=== PATIENT | female | born 1940 | race Caucasian/White ===

== ENCOUNTER 2016-08-30 10:53 | Day surgery (SDC) | payer MEDICARE ==
[2016-08-24 13:25] VITALS: BMI 28.1
[~2016-08-30 10:53] MED LIST: ALBUTEROL NEB (CONC) 2.5 MG/0.5 ML INHALATION ONE; ATROPINE SULFATE 0.4 MG/ML 1 ML VIAL IM ONE; LACTATED RINGERS 1,000 ML IV ONE; LACTATED RINGERS 1,000 ML IV SCH; LIDOCAINE 2% (PF) 20 MG/ML 10ML INHALATION ONE; Pre Op ABX Message 1 EACH MISC MISCELLANE ONE
[2016-08-30 11:30] VITALS: TEMP 97.2
[2016-08-30] MEDS ORDERED: LIDOCAINE 1% 20 ML VIAL (10MG/ML) FOR IV START INTRADERMA ONE (11:45)
[2016-08-30] MEDS ORDERED: PROPOFOL 10 MG/ML 20 ML VIAL IV ONE (12:06)
[2016-08-30] MEDS ORDERED: MIDAZOLAM 2 MG/2 ML VIAL ONE (12:06)
[2016-08-30] MEDS ORDERED: KETAMINE 10 MG/ML 20 ML VIAL ONE (12:06)
[2016-08-30] MEDS ORDERED: fentaNYL (PF) 50 MCG/ML 2 ML AMP ONE (12:06)
[2016-08-30] MEDS ORDERED: LIDOCAINE 1% INJ 10MG/ML (20 ML MDV) ONE (12:06)
[2016-08-30 12:38] VITALS: RESP 18
[2016-08-30 12:55] VITALS: BP 135/76; PULSE 106
--- NOTE | 2016-08-30 15:04 | PCN ---
DATE OF PROCEDURE: There was informed consent. There was universal timeout. PROCEDURE: Bronchoscopy, airway examination, therapeutic lavage, BAL right middle lobe. PREOPERATIVE DIAGNOSIS: Chronic cough POSTOPERATIVE DIAGNOSIS: Chronic cough. There was informed consent and universal timeout. Nadine March CRNA provided IV conscious sedation. After the patient was adequately sedated and being fully monitored, the bronchoscope was inserted through the right nostril. It passed through the right nasopharynx into the oropharynx. The hypopharynx was identified and topicalized. The hypopharyngeal structures all appeared normal, including anterior commissure, true cords, false cords, arachnoid, piriform sinuses, right and left vallecula and epiglottis. After topicalization, the bronchoscope was pushed through the glottic opening into the windpipe. The windpipe appeared normal. Tracheal azael was sharp. Minimal secretions were noted. Right and left mainstem were topicalized. The right upper lobe and its 3 segments, the right middle lobe and its 2 segments, the right lower lobe and its 5 segments, left upper lobe proper and its 2 segments, the lingula and its 2 segments, and the left lower lobe and its 4 segments all had similar findings of diffuse mild bronchitis. There was mild hyperemia and erythema. There was some vascular engorgement. There was no dominant mass, tumor or growth. Secretions were minimal and somewhat frothy looking. Anyway, after a thorough evaluation and inspection, the bronchoscope was wedged into the right middle lobe. BAL took place. The patient tolerated the procedure well. There was minimal scope trauma and the bronchoscope was withdrawn. The patient will be recovered. She was stable throughout the entire procedure.
[2016-08-30 15:39] LABS: RBC, Body Fluid 8800 /uL
== END 2016-08-30 13:11 | disposition home or self-care (01) ==
LOC: ORWHC2ENDO 10:53
PROVIDERS: ATTEND Internal Medicine Critical Care Medicine
DX: J40 Bronchitis, not specified as acute or chronic (principal); E03.9 Hypothyroidism, unspecified; I10 Essential (primary) hypertension; K76.89 Other specified diseases of liver; Z85.038 Personal history of other malignant neoplasm of large intestine; M81.0 Age-related osteoporosis without current pathological fracture; Z79.82 Long term (current) use of aspirin; Z79.52 Long term (current) use of systemic steroids; Z79.899 Other long term (current) drug therapy
CPT/HCPCS: 94640; 87798 ×4; 87496; 87498; 87529 ×2; 88108; 88305; 89050; 87252; 87502 ×2; 87070; 87205; 87116; 87102; 87206; 31624; J2250; J0461; J2001 ×2; J3010; J2704; 99153

== ENCOUNTER → 2016-10-09 | Outpatient (CLI) | payer MEDICARE ==
[2016-10-09 15:21] LABS: Appearance,Urine Clear (Clear); Bilirubin,Urine Negative (Negative); Glucose,Urine (UA) Negative (Negative); Ketones,Urine Negative (Negative); Leukocyte Esterase,Urine Negative (Negative); Nitrite,Urine Negative (Negative); Protein,Urine Negative (Negative); Specific Gravity,Urine 1.022 (1.001-1.035); UA Billing (MACRO vs. MICRO) CHEM; Urobilinogen,Urine <2.0 mg/dL (<2.0)
[2016-10-09 15:22] LABS: Basophils # (A) 0.1 k/uL (0-0.2); Basophils % (A) 1 %; CH 29.5; CHCM 32.1; Eosinophils # (A) 0.2 k/uL (0-0.7); Eosinophils % (A) 3 %; HCT 43.3 % (34.0-46.0); HDW 2.25; HGB 13.8 gm/dL (11.4-16.0); Luc # (Auto) 0.25; Luc % (Auto) 3; Lymphocytes # (A) 1.8 k/uL (1.0-4.8); Lymphocytes % (A) 21 %; MCH 29.5 pg (25.0-35.0); MCHC 31.9 g/dL (31.0-37.0); MCV 92.3 fL (80.0-100.0); Mean Platelet Volume 7.4; Monocytes # (A) 0.6 k/uL (0-1.0); Monocytes % (A) 7 %; Neutrophils # (A) 5.7 k/uL (1.3-7.7); Neutrophils % (A) 66 %; RBC 4.69 m/uL (3.80-5.40); RDW 14.4 % (11.5-15.5); WBC 8.5 k/uL (3.8-10.6); WBC (Perox) 9.02
[2016-10-09 15:33] LABS: ALT 30 U/L (9-52); AST 22 U/L (14-36); Alkaline Phosphatase 105 U/L (38-126); Anion Gap 13 mmol/L; Blood Urea Nitrogen 25 mg/dL (7-17); Carbon Dioxide 25 mmol/L (22-30); Chloride 109 mmol/L (98-107); Glucose 91 mg/dL (74-99); Non-African American GFR(MDRD) >60 (>60 ml/min/1.73 sqM); Potassium 4.2 mmol/L (3.5-5.1); Sodium 147 mmol/L (137-145); Total Bilirubin 0.7 mg/dL (0.2-1.3); Total Protein 6.8 g/dL (6.3-8.2)
[2016-10-09 15:35] LABS: Partial Thromboplastin Time 23.5 sec (22.0-30.0); Prothrombin Time 9.9 sec (9.0-12.0)
== END | disposition home or self-care (01) ==
LOC: LABPAT 14:48
PROVIDERS: ATTEND Orthopaedic Surgery Sports Medicine
DX: Z01.812 Encounter for preprocedural laboratory examination (principal)
CPT/HCPCS: 80053; 81003; 85025; 85610; 85730

== ENCOUNTER 2016-10-18 09:44 | Inpatient (IN) | payer MEDICARE ==
[2016-10-17 11:05] VITALS: BMI 28.1
[~2016-10-18 09:44] MED LIST changes: +ACETAMINOPHEN TAB 500 MG TAB PO ONE; -ALBUTEROL NEB (CONC) 2.5 MG/0.5 ML INHALATION ONE; +ALVIMOPAN 12 MG CAPSULE PO ONE; -ATROPINE SULFATE 0.4 MG/ML 1 ML VIAL IM ONE; +DEXAMETHASONE SOD PHOSPHATE 10 MG/ML 1 ML VIAL IV ONE; +HYDROmorphone 1 MG/ML 1 ML SYRINGE IVP PRN; -LACTATED RINGERS 1,000 ML IV ONE; +LIDOCAINE 1% 20 ML VIAL (10MG/ML) FOR IV START INTRADERMA PRN; -LIDOCAINE 2% (PF) 20 MG/ML 10ML INHALATION ONE; +MELOXICAM 7.5 MG TAB PO ONE; +MIDAZOLAM 2 MG/2 ML VIAL IV PRN; +ONDANSETRON 4 MG/2 ML VIAL IVP ONE; -Pre Op ABX Message 1 EACH MISC MISCELLANE ONE; +SCOPOLAMINE 1.5MG/72HR PATCH TRANSDERM ONE; +TRANEXAMIC ACID 1,000 MG in SODIUM CHLORIDE 0.9% 100 ML IVPB ONE; +ceFAZolin 2 GM in SODIUM CHLORIDE 0.9% 100 ML IVPB ONE
[2016-10-18 10:35] LABS: Glucose,Whole Blood 92 mg/dL (75-99)
[2016-10-18] MEDS ORDERED: LIDOCAINE 1% INJ 10MG/ML (20 ML MDV) ONE (11:08)
[2016-10-18] MEDS ORDERED: PROPOFOL 10 MG/ML 20 ML VIAL IV ONE (11:08)
[2016-10-18] MEDS ORDERED: fentaNYL (PF) 50 MCG/ML 2 ML AMP ONE (11:08)
[2016-10-18] MEDS ORDERED: MIDAZOLAM 2 MG/2 ML VIAL ONE (11:08)
[2016-10-18] MEDS ORDERED: PHENYLEPHRINE-0.9% NACL SYG 1 MG/10 ML SYRINGE ONE (11:08)
[2016-10-18] MEDS ORDERED: TRANEXAMIC ACID 1,000 MG/10 ML VIAL ONE (11:08)
[2016-10-18] MEDS ORDERED: SODIUM CHLORIDE 0.9% 100 ML BAG ONE (11:08)
[2016-10-18] MEDS: ROPIVACAINE 246.25 MG, EPINEPHrine 0.5 MG, KETOROLAC 30 MG, cloNIDine HCL/PF 80 MCG, WA... MISCELLANE ONE ×10 (11:50→12:31)
[2016-10-18] MEDS ORDERED: ceFAZolin 3,000 MG in SODIUM CHLORIDE 0.9% IRRIGATIO 3,000 ML IRRIGATION ONE (11:51)
[2016-10-18] MEDS ORDERED: LACTATED RINGERS 1,000 ML IV ONE ×2 (12:38)
[2016-10-18] MEDS ORDERED: traMADol 50 MG TAB PO PRN (13:21)
[2016-10-18] MEDS ORDERED: HYDROmorphone 1 MG/ML 1 ML SYRINGE IVP PRN ×3 (13:21)
[2016-10-18] MEDS ORDERED: MAGNESIUM HYDROXIDE 2,400 MG/10 ML CUP PO PRN (13:21)
[2016-10-18] MEDS ORDERED: BISACODYL 10 MG SUPP RECTAL PRN (13:21)
[2016-10-18] MEDS ORDERED: ACETAMINOPHEN TAB 325 MG TAB PO PRN (13:21)
[2016-10-18] MEDS ORDERED: NALOXONE 0.4 MG/ML 1 ML VIAL IV PRN ×4 (13:21→19:01)
[2016-10-18] MEDS ORDERED: ONDANSETRON 4 MG/2 ML VIAL IVP PRN (13:21)
[2016-10-18] MEDS ORDERED: NA PHOS,M-B/NA PHOS,DI-BA 133 ML ENEMA RECTAL PRN (13:21)
[2016-10-18] MEDS ORDERED: HYDROcodone/APAP 7.5-325MG 1 EACH TAB PO PRN (13:21)
[2016-10-18] MEDS ORDERED: DIAZEPAM 5 MG TAB PO PRN (13:21)
[2016-10-18] MEDS ORDERED: hydrOXYzine PAMOATE 25 MG CAP PO PRN (13:21)
--- NOTE | 2016-10-18 13:57 | XR ---
EXAMINATION TYPE: XR knee limited LT DATE OF EXAM: 10/18/2016 1:44 PM CLINICAL HISTORY: Left knee pain and arthritis status post total knee replacement. TECHNIQUE: Portable AP and crosstable lateral views of the left knee are obtained immediately postop eratively. COMPARISON: None FINDINGS: Metallic hardware from total left knee arthroplasty is seen and appears satisfactory in al ignment and position. There is evidence of recent surgery with diffuse subcutaneous gas and soft tis jassi swelling noted. IMPRESSION: METALLIC HARDWARE FROM TOTAL LEFT KNEE ARTHROPLASTY IS SATISFACTORY IN ALIGNMENT.
[2016-10-18] MEDS ORDERED: NALBUPHINE 10 MG/ML AMPUL IV PRN (14:52)
[2016-10-18] MEDS ORDERED: MORPHINE SULFATE 4 MG/ML SYRINGE IVP PRN ×4 (14:52→19:39)
[2016-10-18] MEDS ORDERED: diphenhydrAMINE 50 MG/ML 1 ML VIAL IVP PRN (14:52)
[2016-10-18] MEDS ORDERED: PROMETHAZINE INJ 6.25 MG in SODIUM CHLORIDE 0.9% 50 ML IVPB PRN (14:52)
[2016-10-18] MEDS ORDERED: METOCLOPRAMIDE 5 MG/ML 2 ML VIAL IVP PRN (14:52)
[2016-10-18] MEDS ORDERED: CHOLECALCIFEROL 1,000 UNIT TAB PO SCH (15:15)
[2016-10-18] MEDS ORDERED: CALCIUM CARB-VIT D 500MG-200UN 1 EACH TAB PO SCH (15:15)
[2016-10-18] MEDS: LACTATED RINGERS 1,000 ML IV SCH ×2 (15:44→20:38)
[2016-10-18 16:45] LABS: Glucose,Whole Blood 109 mg/dL (75-99)
[2016-10-18] MEDS: LATANOPROST 0.005% OPHTH DROPS 2.5 ML BTL LEFT EYE SCH (20:41)
[2016-10-18] MEDS: SENNOSIDES-DOCUSATE SODIUM 1 EACH TAB PO SCH (20:41)
[2016-10-18] MEDS: VIT A,C & E-LUTEIN-MINERALS 1 EACH TAB PO SCH (20:42)
[2016-10-18] MEDS: ceFAZolin 2 GM in SODIUM CHLORIDE 0.9% 100 ML IVPB SCH (20:44)
[2016-10-18] MEDS ORDERED: TEMAZEPAM 15 MG CAP PO PRN (21:00)
--- NOTE | 2016-10-18 21:20 | PN ---
DATE OF SERVICE: 10/18/2015. Edelmira is status post left total knee arthroplasty done earlier today. I saw her up on the floor in her room. She is resting comfortably. Her pain is well controlled. She has no other complaints. On examination, the dressing is dry. She has intact flexion-extension, inversion and eversion of the ankle. She has intact flexion-extension of all of her toes. She has intact dorsal plantar and lateral and first dorsal web space sensation in the foot. She has intact capillary refill in all of her digits and 2+ palpable posterior tibial pulse. IMPRESSION: Status post left total knee arthroplasty. RECOMMENDATIONS: Edelmira is doing very well in the immediate postoperative period, she will continue with usual postoperative physical therapy regimen. She is yet to decide whether she is going to at this point plan to go to a rehab facility versus discharge home. She will work that out with social workers and her . She will continue with DVT prophylaxis.
--- NOTE | 2016-10-18 22:11 | OP ---
DATE OF SERVICE: 10/18/2016 SURGEON: JULITO WHEELER MD HOME SECURITY ALARM INSTALLER: Maurice Gonzales PA-C PREOPERATIVE DIAGNOSIS: Left knee osteoarthrosis. POSTOPERATIVE DIAGNOSIS: Left knee osteoarthrosis. OPERATION: Left total knee arthroplasty. ANESTHESIA: Spinal with sedation. ESTIMATED BLOOD LOSS: 100 mL. SPECIMENS REMOVED: COMPLICATIONS: None apparent. OPERATIVE FINDINGS: TOURNIQUET TIME: 51 minutes at 250 mmHg. DRAINS: None. DISPOSITION: Postanesthesia care unit. INDICATIONS: Edelmira is a 75-year-old female with a long-standing history of left knee pain. History and physical examination are consistent with advanced left osteoarthrosis. She has been through significant nonoperative management up to this point. Further treatment options were discussed and she has decided to go forward with a left total knee arthroplasty. The risks of the procedure were discussed with her in detail. These risks include, but are not limited to risk of infection, nerve damage, bleeding, pain and a small risk of deep vein thrombosis, which could lead to fatal pulmonary embolism. There is also a risk of loosening of the implant, which could require revision operation. The patient understands these risks. All of her questions were answered to her satisfaction. An appropriate informed consent was obtained. DESCRIPTION OF PROCEDURE: The patient was identified in preoperative holding area. Surgical site was marked by both the patient and myself. She was given 2 g of Ancef IV for prophylactic purposes. She was then transferred to the operative suite, where she was placed supine on the operating room table. A spinal anesthetic was then administered and dosed per the anesthesia department without apparent complication. Examination under anesthesia was then performed. The patient had full extension. She had 105 degrees of flexion and the medial collateral ligament, lateral collateral ligament and posterior cruciate ligaments were stable. The tourniquet was then placed high on the left upper thigh, well padded in preparation for surgery. Patient's left lower extremity was then prepped and draped in the usual sterile fashion. Standard surgical pause was then undertaken to ensure that we were operating on the correct site and that appropriate preoperative antibiotics had been given. All staff in the room were in agreement and we proceeded. The outlines of the patella were then marked with a surgical pen. A planned 12 cm vertical incision centered over the patella was marked with a surgical pen. The leg was then exsanguinated with an Esmarch dressing. The knee was then flexed and the tourniquet inflated to 250 mmHg. The total tourniquet time for the procedure was 51 minutes. Incision was then made with a 10 blade scalpel. Dissection was carried down sharply to the overlying fascia. Great care was taken to minimize the skin flaps. The knee was then exposed using a standard medial parapatellar approach. A small cuff of quadriceps tendon was then left for suturing. She was in a bit of varus preoperatively. A standard medial release was then made. Superficial medial collateral ligament was dissected off of the bone around to the posterior aspect of the proximal tibia. The medial meniscus was then excised as well. The lateral meniscus was also released anteriorly. The leg was then externally rotated. The patella was everted and the knee was flexed. Retractors were then placed to protect the collateral ligaments. I then proceeded to remove the infrapatellar fat pad. This was excised sharply tangentially with the fibers of the patellar tendon. I then proceeded to remove the peripheral osteophytes. This was done with a rongeur. I then proceeded with the distal femoral resection. She did have near full extension. A planned 9 mm resection was done. The femoral canal was then entered in the midline of the femur approximately 10 mm anterior to the origin of the posterior cruciate ligament. The jenni was then advanced down the center of the femur and the jenni placed intramedullary. Based on preoperative radiographs, the angle between the anatomic and mechanical axis of the femur was approximately 4 to 5 degrees. The valgus angle of the distal femoral cutting guide was then set at 4 degrees for the left knee. The distal femoral cutting guide was then advanced over the intramedullary jenni. This was seated firmly against the femur. I then, as mentioned, planned to take 9 mm off of the distal femur. The cutting block was then secured onto the femur with pins. The jig was then removed and the distal femoral cut was made through the slot of the block. The pins were then removed and the distal femoral cutting block was removed. The accuracy of the distal femoral cuts was checked with 2 flat bars. I then proceeded with femoral sizing. Posterior referencing sizing guide was held firmly against the resected distal surface of the femur. Posterior condyles were resting on the posterior plane of the guide. The sizing stylus was then placed onto the anterior femur. This was measured a size 6. I then assessed for femoral rotation. The plan was for 3 degrees of external rotation. Three degrees of external rotation was placed onto the jig. These holes were then marked. I then confirmed the rotation by 3 separate methods. This was done using the epicondylar axis as well as white sideline and posterior referencing. It was deemed that the external rotation was proper. I then went forward with placing the femoral cutting block. This was placed over the previously placed pinholes. The jacinda wing was then placed onto the anterior slots to ensure that we would not notch the anterior femur with the anterior femoral cut. I then proceeded with the anterior femoral cut. This was flush with the anterior cortex of the femur. Posterior cuts were then made followed by the anterior chamfer cut and then the posterior chamfer cut. Cutting block was then removed. Throughout the resection, the collateral ligaments were protected with retractors. I then placed a trial 6 femur. It fit very nice medial to lateral and fit flush with the distal end of the femur. The drill holes were then made. I then proceeded with the tibial cut. I planned for cruciate-retaining knee. The guide was then placed and set for varus, valgus and for slope. The height was then set for approximate 2 mm resection from the medial tibial plateau, which was the lower side. I was happy with the alignment and the amount of resection. The cutting block was then pinned to the proximal tibia. The alignment jenni was removed and the proximal tibia was resected with the reciprocating saw. Again this was done with retractors, protecting the collateral ligaments as well as the posterior cruciate ligament. I then proceeded to re-evaluate the flexion and extension gaps. A 10 mm block was placed. The flexion and extension gaps were equal. I then proceeded with resection of the posterior osteophytes. She had very minimal posterior osteophytes. This was done using a curved osteotome. This resected the posterior osteophytes and posterior capsule stripping was also done off the posterior aspect of the femur. The osteophytes were removed. I then proceeded with resection of the patella. The thickness of the patella was measured using the caliper. Thickness was 22 mm. The thickness of the anticipated patellar dome was taken into account. Resection was then performed and confirmed to be equal in 4 quadrants using a caliper. Approximately 14 mm of bone remained after the resection. A 29 x 8 mm standard patellar trial was then placed. The holes were then drilled and trial was then placed. I then proceeded with sizing the tibial plate. A size E tibial plate fit very nicely. I then placed the trial femur, the tibial tray and the patellar button. A 10 mm trial tibial insert was also placed. The components fit very nicely. She had full flexion and extension. The extension and flexion gaps were equal and stable to both varus and valgus stress. The patella tracked appropriately. Tibial tray rotation was marked with the Bovie. This was externally rotated properly. I then proceeded with tibial preparation. I first drilled the femoral holes and removed the femoral component. The tibial tray was then set for proper external rotation as well as mediolateral placement onto the tibia. It was then pinned into place. I then proceeded with punching the keel. I then decided to proceed with cementing of all of our components. The knee was thoroughly irrigated with sterile saline solution via pulse lavage. The lateral geniculate artery was identified and cauterized. All blood was removed from the bone of the tibia, femur and patella with pulse lavage. I then proceeded with cementing. Two packs of antibiotic bone cement were prepared on the back table by the registered nurse surgical services. I then proceeded with cementing of the tibia first. The cement was impacted in the keel as well as deeply seated into the bone. A second coat of cement was then placed. The tibia was then impacted into place. Excess cement was removed with Cushings and jokers. I then proceeded with cementing of the femoral component. The femoral component was also cemented using standard technique. Excess cement was removed. A 10 mm trial insert was then placed into the knee. It was brought into full extension with a constant axial load placed until the cement had hardened. The patellar component was then cemented. This was held firmly with a compressive device until the cement had dried. When the cement had dried, the knee was taken out of extension. All excess cement was removed from around the prosthesis. I then trialed the knee with a 10 mm insert. I then continued to trial with an 11 mm insert. Flexion-extension gaps felt very good with an 11 mm insert. The knee was stable. It came into full extension. I decided to go forward with an 11 mm cross-linked cruciate-retaining tibial insert. Polyethylene was then placed onto the tibial tray and locked. The knee was then reduced. The knee was again further irrigated with sterile saline solution with antibiotic added. The tourniquet was then deflated. The total tourniquet time for the procedure was 51 minutes at 250 mmHg. Final components were Christelle Persona size 6 cruciate-retaining femoral component, a size E tibial tray, an 11 mm medial congruent cruciate-retaining polyethylene insert and a 29 x 8 mm patella. I then proceeded to closure. Again, the knee was thoroughly irrigated. The quadriceps tendon and the medial retinaculum were re-approximated with #2 Ethibond suture. The extensor mechanism was then closed with running #2 Quill suture. Subcutaneous tissues were closed with 2-0 Vicryl interrupted suture. The skin was closed with a running 3-0 Quill suture. Dermabond was applied to the incision. Sterile compressive dressings were then applied. All sponge and needle counts were deemed correct prior to closure. The patient tolerated the procedure well without apparent complication. She was transferred to recovery room in stable condition.
[2016-10-19] MEDS: ceFAZolin 2 GM in SODIUM CHLORIDE 0.9% 100 ML IVPB SCH (02:33)
[2016-10-19] MEDS: LEVOTHYROXINE 50 MCG TAB PO SCH (02:34)
[2016-10-19 08:00] LABS: Basophils # (A) 0.1 k/uL (0-0.2); Basophils % (A) 0 %; CH 29.3; CHCM 31.6; Eosinophils % (A) 0 %; HCT 36.3 % (34.0-46.0); HDW 2.26; HGB 11.7 gm/dL (11.4-16.0); Luc # (Auto) 0.26; Luc % (Auto) 2; Lymphocytes % (A) 16 %; MCHC 32.2 g/dL (31.0-37.0); MCV 93.3 fL (80.0-100.0); Monocytes # (A) 1.1 k/uL (0-1.0); Monocytes % (A) 9 %; Neutrophils # (A) 9.3 k/uL (1.3-7.7); Neutrophils % (A) 73 %; RBC 3.89 m/uL (3.80-5.40); RDW 13.9 % (11.5-15.5); WBC 12.7 k/uL (3.8-10.6); WBC (Perox) 12.73
[2016-10-19] MEDS: HYDROcodone/APAP 7.5-325MG 1 EACH TAB PO PRN ×3 (08:15→20:15)
[2016-10-19] MEDS: VIT A,C & E-LUTEIN-MINERALS 1 EACH TAB PO SCH ×2 (08:16→20:15)
[2016-10-19] MEDS: ASPIRIN 325 MG TAB PO SCH ×2 (08:16→20:15)
--- NOTE | 2016-10-19 10:24 | P.PN ---
Progress Note - Text Date:10/19 Time:650 Patient is status post tkr. Patient seen this morning with VAS score of 2. c/o of pruritus, no c/o nausea/vomiting, comfortable and doing well.
[2016-10-19] MEDS: LACTATED RINGERS 1,000 ML IV SCH ×3 (10:54→21:33)
[2016-10-19] MEDS: MULTIVITAMINS, THERA 1 EACH TAB PO SCH (13:42)
--- NOTE | 2016-10-19 15:15 | P.CONS ---
History of Present Illness - Reason for Consult Consult date: 10/19/16 medical management - History of Present Illness this is a 75-year-old female. Her primary care physician is Dr. Roe. She has a past medical history for generalized osteoarthritis, hypothyroidism with Giovana's, glaucoma, status post small bowel resection. Patient also states that she has follow-up with Dr. Landa due to a harsh cough that seemed to be worse after she uses incentive spirometry. She states the cough has been going on since June. She underwent a bronchoscopy and biopsy. Biopsy report shows reactive bronchial lining cells, macrophages and mixed inflammatory cells. No malignant cells identified.patient was brought into [facility] as an elective surgery and is status post left total knee arthroplasty with Dr. Valle. Patient has had no postop complications. Her Valdes catheter was removed but she has not urinated as of yet. She is planning to go to [facility] for subacute rehab.hemoglobin is stable at 11.7. Review of Systems All systems: negative Constitutional: Denies chills, Denies fever Eyes: denies blurred vision, denies pain Ears, nose, mouth and throat: Denies headache, Denies sore throat Cardiovascular: Denies chest pain, Denies shortness of breath Respiratory: Denies cough Gastrointestinal: Denies abdominal pain, Denies diarrhea, Denies nausea, Denies vomiting Genitourinary: Denies dysuria, Denies hematuria Musculoskeletal: Denies myalgias Integumentary: Denies pruritus, Denies rash Neurological: Denies numbness, Denies weakness Psychiatric: Denies anxiety, Denies depression Endocrine: Denies fatigue, Denies weight change Past Medical History Past Medical History: Osteoarthritis (OA), Thyroid Disorder Additional Past Medical History / Comment(s): harsh cough since Jun 2016, Giovana's Disease,Steroids in Aug 2016,glaucoma esther eyes History of Any Multi-Drug Resistant Organisms: None Reported Past Surgical History: Bowel Resection, Tonsillectomy Additional Past Surgical History / Comment(s): needle bx rt breast, 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 She does not need cane, walker at home. She lives at home with her . Past Drug Use History: None Reported - Past Family History Mother Family Medical History: No Reported History Additional Family Medical History / Comment(s): mother at age 88 from old age. Father Family Medical History: Cancer Additional Family Medical History / Comment(s): Father at age 78 from prostate cancer. Brother(s) Additional Family Medical History / Comment(s): Patient does not have any brothers. Sister(s) Additional Family Medical History / Comment(s): Patient has 3 sisters. One has history of breast cancer. Daughter(s) Additional Family Medical History / Comment(s): Patient has one daughter with no major medical problems. Patient also has one adopted son and one adopted daughter. Medications and Allergies Home Medications Medication Instructions Recorded Confirmed Type Aspirin 81 mg PO Q2D 08/15/16 10/18/16 History Ca Carbonate/Vitamin D3/Vit K 1 tab PO Q2D 08/15/16 10/18/16 History [Citracal Soft Chew] Cholecalciferol [Vitamin D3] 2,000 unit PO Q2D 08/15/16 10/18/16 History Levothyroxine Sodium [Synthroid] 50 mcg PO QAM 08/15/16 10/18/16 History Bimatoprost [Lumigan .01% Ophth 1 drop LEFT EYE HS 10/17/16 10/18/16 History Soln] Retinavites 1 tab PO BID 10/17/16 10/18/16 History Allergies Allergy/AdvReac Type Severity Reaction Status Date / Time cucumber AdvReac Diarrhea,be Verified 10/18/16 15:37 lching Pepper AdvReac Nausea & Verified 10/18/16 15:37 Vomiting(red & green peppers) pineapple AdvReac Diarrhea,be Verified 10/18/16 15:37 lching Physical Exam Vitals: Vital Signs Temp Pulse Resp BP Pulse Ox 10/19/16 07:00 98.5 F 90 18 120/66 95 10/19/16 02:22 97.8 F 86 16 124/60 94 L 10/18/16 20:43 97.3 F L 71 16 120/62 95 10/18/16 16:30 73 121/42 95 10/18/16 16:15 62 111/68 94 L 10/18/16 16:00 83 16 119/90 96 10/18/16 15:45 74 113/67 96 10/18/16 15:30 79 113/65 96 10/18/16 15:15 77 109/69 94 L 10/18/16 15:00 84 107/62 95 10/18/16 14:45 76 105/63 95 10/18/16 14:30 97 F L 85 16 113/67 94 L 10/18/16 14:15 89 16 119/67 97 10/18/16 14:00 87 16 114/59 96 10/18/16 13:44 89 16 110/58 96 10/18/16 13:30 92 16 103/55 95 10/18/16 13:22 97.2 F L 91 18 96/54 94 L Intake and Output 10/18/16 10/19/16 10/19/16 22:59 06:59 14:59 Intake Total 590 1200 240 Output Total 250 450 200 Balance 340 750 40 Intake: IV 1200 Lactated Ringers 1,000 ml 1200 @ 100 mls/hr IV .Q10H EDUAR Rx#:[id number] Oral 590 240 Output: Urine 250 450 200 Uretheral (Valdes) 450 200 Other: Voiding Method Indwelling Catheter Weight 81.647 kg Gen: This is a 75-year-old female. She is sitting up in bed and appears to be in no acute distress. HEENT: Head is atraumatic, normocephalic. Pupils equal, round. Sclerae is anicteric. NECK: Supple. No JVD. No lymphadenopathy. No thyromegaly. LUNGS: Clear to auscultation. No wheezes or rhonchi. No intercostal retractions. HEART: Regular rate and rhythm. No murmur. ABDOMEN: Soft. Bowel sounds are present. No masses. No tenderness. EXTREMITIES: No pedal edema. No calf tenderness. Left knee dressing in place. No breakthrough bleeding or drainage. NEUROLOGICAL: Patient is awake, alert and oriented x3. Cranial nerves 2 through 12 are grossly intact. Results CBC & Chem 7: 10/19/16 07:16 Labs: Abnormal Lab Results - Last 24 Hours (Table) 10/18/16 10/19/16 Range/Units 16:41 07:16 WBC 12.7 H (3.8-10.6) k/uL Neutrophils # 9.3 H (1.3-7.7) k/uL Monocytes # 1.1 H (0-1.0) k/uL POC Glucose (mg/dL) 109 H (75-99) mg/dL Assessment and Plan Plan: 1. Osteoarthritis left knee status post left total knee arthroplasty. Continue current pain management. PT and OT per orthopedics. Valdes catheter removed. Monitor for urinary retention. 2. Hypothyroidism. Continue levothyroxine. 3. Glaucoma bilateral eyes. Continue eyedrops. 4. History of small bowel resection, stable. 5. DVT prophylaxis. Patient is on aspirin 325 mg twice daily. 6. Gastrointestinal prophylaxis. 7. Incentive spirometry to reduce incidence of atelectasis and hospital- acquired pneumonia. Discharge plan: [facility] in the next 24 hours Impression and plan of care have been directed as dictated by the signing physician. Nayla Winslow nurse practitioner acting as scribe for signing physician. Time with Patient: Greater than 30
--- NOTE | 2016-10-19 17:41 | P.PN ---
Subjective Principal diagnosis: OA Left Knee Patient seen at bedside today. She is post op day #1 from left total knee arthroplasty per Dr. Valle. She has no new complaints. She has post op pain as expected at the surgical site. She denies numbness, tingling or calf pain. ROS is negative for fever, chills, chest pain, SOB or other. Objective - Vital Signs Vital signs: Vital Signs Temp 98 F 10/19/16 15:00 Pulse 90 10/19/16 15:00 Resp 18 10/19/16 15:00 BP 109/58 10/19/16 15:00 Pulse Ox 95 10/19/16 15:00 Intake & Output 10/18/16 10/19/16 10/19/16 18:59 06:59 18:59 Intake Total 1502 1790 1440 Output Total 725 450 700 Balance 777 1340 740 Weight 81.647 kg 81.647 kg Intake: IV 1502 1200 200 Lactated Ringers 1,000 ml 1200 200 @ 100 mls/hr IV .Q10H EDUAR Rx#:[id number] Oral 590 1240 Output: Urine 625 450 700 Uretheral (Valdes) 450 200 Estimated Blood Loss 100 Other: Voiding Method Indwelling Catheter Indwelling Catheter Indwelling Catheter - Exam Inspection of left lower extremity reveals a benign surgical wound. There is no active bleeding, drainage, or dehiscence. Neuro status intact with motor and sensation throughout the lower extremity. Calf is soft and nontender. 2+ pulses and less than 2 sec cap refill present. - Constitutional General appearance: Present: no acute distress - Psychiatric Psychiatric: Present: A&O x's 3, appropriate affect, intact judgment & insight - Labs CBC & Chem 7: 10/19/16 07:16 Labs: Abnormal Lab Results - Last 24 Hours (Table) 10/19/16 Range/Units 07:16 WBC 12.7 H (3.8-10.6) k/uL Neutrophils # 9.3 H (1.3-7.7) k/uL Monocytes # 1.1 H (0-1.0) k/uL Assessment and Plan (1) Osteoarthritis of left knee Status: Acute Plan: She will continue with routine postop orthopedic protocol including wound care, PT, pain management, DVT prophylaxis, and medical management. Expect transfer to [facility] tomorrow, Saturday. Time with Patient: Less than 30
[2016-10-19] MEDS: SENNOSIDES-DOCUSATE SODIUM 1 EACH TAB PO SCH (20:15)
[2016-10-19] MEDS: LATANOPROST 0.005% OPHTH DROPS 2.5 ML BTL LEFT EYE SCH (20:15)
[2016-10-20] MEDS: HYDROcodone/APAP 7.5-325MG 1 EACH TAB PO PRN ×2 (01:16→06:19)
[2016-10-20] MEDS: LEVOTHYROXINE 50 MCG TAB PO SCH (06:06)
[2016-10-20] MEDS: VIT A,C & E-LUTEIN-MINERALS 1 EACH TAB PO SCH (07:38)
[2016-10-20] MEDS: ASPIRIN 325 MG TAB PO SCH (07:38)
[2016-10-20] MEDS: MULTIVITAMINS, THERA 1 EACH TAB PO SCH (07:39)
--- NOTE | 2016-10-20 09:16 | P.DS ---
Providers Date of admission: 10/18/16 09:44 Expected date of discharge: 10/20/16 Attending physician: Braulio Valle Consults: 10/18/16 13:21 Consult Physician Routine Consulting Provider: Chiki Roe Reason/Comments: Post op medical management Do you want consulting provider notified?: Yes Primary care physician: Chiki Roe - Discharge Diagnosis(es) (1) Osteoarthritis of left knee Patient was admitted the OR on 10/18/2016 for left total knee arthroplasty per Dr. Valle. She had failed conservative measures as an outpatient and desired to proceed after given informed consent. She underwent the above procedure which she tolerated well without complications. Her postoperative hospital course has remained without competition. On day of discharge she is afebrile, vital signs stable, wound is benign, labs within acceptable ranges, abdomen is soft and nontender, calf is soft and nontender, denies new complaints, tolerating by mouth meds and diet. Review of systems is negative for fever, chills, chest pain, shortness breath, nausea, vomiting, dizziness, headaches, slurred speech, abdominal pain, calf pain, numbness, tingling or other. Current Visit: Yes Status: Acute Priority: Medium Procedures: Left total knee arthroplasty Patient Condition at Discharge: Good Plan - Discharge Summary New Discharge Prescriptions: Aspirin 325 mg PO BID #60 tab Docusate [Colace] 100 mg PO BID #60 capsule HYDROcodone/APAP 7.5-325MG [[place] 7.5-325] 1 - 2 each PO Q6HR PRN #90 tab PRN Reason: Pain Discharge Medication List Aspirin 81 mg PO Q2D 08/15/16 [History] Ca Carbonate/Vitamin D3/Vit K [Citracal Soft Chew] 1 tab PO Q2D 08/15/16 [ History] Cholecalciferol [Vitamin D3] 2,000 unit PO Q2D 08/15/16 [History] Levothyroxine Sodium [Synthroid] 50 mcg PO QAM 08/15/16 [History] Bimatoprost [[place] .01% Ophth Soln] 1 drop LEFT EYE HS 10/17/16 [History] Retinavites 1 tab PO BID 10/17/16 [History] Aspirin 325 mg PO BID #60 tab 10/20/16 [Rx] Docusate [Colace] 100 mg PO BID #60 capsule 10/20/16 [Rx] HYDROcodone/APAP 7.5-325MG [[place] 7.5-325] 1 - 2 each PO Q6HR PRN #90 tab [Rx] Follow up Appointment(s)/Referral(s): Braulio Valle MD [STAFF PHYSICIAN] - 2 Weeks Activity/Diet/Wound Care/Special Instructions: Keep wound clean and dry Weight-bear as tolerated Follow-up with Dr. Valle in office Take meds as directed Discharge Disposition: TRANSFER TO SNF/ECF
[2016-10-20 09:34] VITALS: BP 134/88; PULSE 80; RESP 16; TEMP 98.4
--- NOTE | 2016-10-20 21:55 | P.PN ---
Subjective this is a 75-year-old female. Her primary care physician is Dr. Roe. She has a past medical history for generalized osteoarthritis, hypothyroidism with Giovana's, glaucoma, status post small bowel resection. Patient also states that she has follow-up with Dr. Landa due to a harsh cough that seemed to be worse after she uses incentive spirometry. She states the cough has been going on since June. She underwent a bronchoscopy and biopsy. Biopsy report shows reactive bronchial lining cells, macrophages and mixed inflammatory cells. No malignant cells identified.patient was brought into [facility] as an elective surgery and is status post left total knee arthroplasty with Dr. Valle. Patient has had no postop complications. Her Valdes catheter was removed but she has not urinated as of yet. She is planning to go to [facility] for subacute rehab.hemoglobin is stable at 11.7. 10/20: Patient's doing well anticipating her discharge to [facility] for skilled subacute rehabilitation, pain is not controlled requiring up this every 3 hours for [place], patient was started on meloxicam 15 mg along with the aspirin 325 mg twice a day for her DVT prophylaxis. Objective - Vital Signs Vital signs: Vital Signs Temp 98.4 F 10/20/16 07:30 Pulse 80 10/20/16 07:30 Resp 16 10/20/16 07:30 BP 134/88 10/20/16 07:30 Pulse Ox 95 10/20/16 07:30 Intake & Output 10/20/16 10/20/16 10/21/16 06:59 18:59 06:59 Intake Total 1200 Output Total 476 Balance -476 1200 Intake: Oral 1200 Output: Urine 476 Other: Voiding Method Toilet # Voids 1 1 # Bowel Movements 1 - Constitutional General appearance: Present: cooperative, no acute distress - EENT Eyes: Present: anicteric sclerae, PERRLA, dentition normal. Absent: abnormal pupil, disc margins sharp, edentulous, EOMI, fundus normal, photophobia, poor dentition, ptosis, scleral icterus, normal appearance ENT: Present: hearing grossly normal, normal oropharynx. Absent: hard of hearing, NA/AT, other, pharyngeal erythema, thrush, tonsillar exudates, tonsillar swelling - Respiratory Respiratory: bilateral: CTA, negative: diminished, dullness, rales, rhonchi - Cardiovascular Rhythm: regular Heart sounds: normal: S1, S2 Abnormal Heart Sounds: Absent: systolic murmur, diastolic murmur, rub, S3 Gallop , S4 Gallop, click, other - Gastrointestinal General gastrointestinal: Present: soft - Integumentary Integumentary: Present: normal, normal turgor - Neurologic Neurologic: Present: CNII-XII intact - Musculoskeletal Musculoskeletal: Present: strength equal bilaterally - Psychiatric Psychiatric: Present: A&O x's 3, appropriate affect, intact judgment & insight - Labs CBC & Chem 7: 10/19/16 07:16 Assessment and Plan Plan: . Osteoarthritis left knee status post left total knee arthroplasty. Continue current pain management. PT and OT per orthopedics. Valdes catheter removed. Monitor for urinary retention. Meloxicam started 50 mg daily for augmentation of pain control, patient's continue on hydrocodone, aspirin for DVT prophylaxis stable for transfer to [facility] subacute rehab 2. Hypothyroidism. Continue levothyroxine. 3. Glaucoma bilateral eyes. Continue eyedrops. 4. History of small bowel resection, stable. 5. DVT prophylaxis. Patient is on aspirin 325 mg twice daily. 6. Gastrointestinal prophylaxis. 7. Incentive spirometry to reduce incidence of atelectasis and hospital- acquired pneumonia. Discharge plan: [facility] today
== END 2016-10-20 15:52 | DRG 470 ==
LOC: 2ORMAIN 09:44 → 3SUR 13:25
PROVIDERS: ADMIT Orthopaedic Surgery Sports Medicine; ATTEND Orthopaedic Surgery Sports Medicine
PROC: 0SRD0J9 Replacement of Left Knee Joint with Synthetic Substitute, Cemented, Open Approach (ICD-10-PCS; principal; 2016-10-18 11:30)
DX: M17.12 Unilateral primary osteoarthritis, left knee (principal); E06.3 Autoimmune thyroiditis; H40.9 Unspecified glaucoma; Z90.49 Acquired absence of other specified parts of digestive tract; Z79.82 Long term (current) use of aspirin; Z79.899 Other long term (current) drug therapy
CPT/HCPCS: 85025

== ENCOUNTER → 2020-02-23 | Outpatient (CLI) | payer MEDICARE ==
--- NOTE | 2020-02-23 19:19 | CT ---
EXAMINATION TYPE: CT sinus wo con DATE OF EXAM: 02/23/2020 COMPARISON: None HISTORY: 79 year-old female right eye/facial pain CT DLP: 718.7 mGycm Automated exposure control for dose reduction was used. TECHNIQUE: Noncontrast axial views of the paranasal sinuses were obtained. Coronal reformatted images were obtained. FINDINGS: PARANASAL SINUSES: The frontal, ethmoid, maxillary and sphenoid sinuses are clear and well pneumatized. There is no mucosal thickening or air-fluid level. Reactive brent- osteogenesis is not seen. There is no destruction of the osseous maya of the paranasal sinuses. THE NASAL CAVITY: The osteomeatal complexes are patent. Slight rightward nasal septal deviation. The imaged brain and orbits are normal in appearance. Prior right-sided cataract surgery. Mastoid air cells and middle ear cavities are well pneumatized. Reformatted images confirm above findings. IMPRESSION: No significant paranasal sinus disease. Slight rightward nasal septal deviation. Prior right-sided ca taract surgery.
== END | disposition home or self-care (01) ==
LOC: RADCTMAIN 15:00
PROVIDERS: ATTEND Otolaryngology
DX: J34.2 Deviated nasal septum (principal); Z98.41 Cataract extraction status, right eye
CPT/HCPCS: 70486